=== PATIENT | female | born 1960 | race Native Hawaiian/Other Pacific Islander ===

== ENCOUNTER 2017-08-06 08:11 | Outpatient (CLI) | payer OTHER | END 2017-08-07 05:16 | disposition home or self-care (01) | LOC: MAMMO 08:11 | DX: Z12.31 Encounter for screening mammogram for malignant neoplasm of breast (principal) ==

== ENCOUNTER 2017-12-20 16:59 | Outpatient (CLI) | payer OTHER ==
[2017-12-20 17:44] LABS: PLATELET COUNT 259 K/uL (152-353)
[2017-12-20 18:20] LABS: POTASSIUM 3.1 mmol/L (3.6-5.2)
== END 2017-12-20 20:27 | disposition home or self-care (01) ==
LOC: LABW 16:59
PROVIDERS: Nurse Practitioner
DX: I10 Essential (primary) hypertension (principal); E78.00 Pure hypercholesterolemia, unspecified; N95.1 Menopausal and female climacteric states; E55.9 Vitamin D deficiency, unspecified
CPT/HCPCS: 36415; 80053; 80061; 82306; 82672; 84144; 84403; 85027

== ENCOUNTER 2018-09-12 17:12 | Outpatient (CLI) | payer OTHER | END 2018-09-12 19:50 | disposition home or self-care (01) | LOC: LABW 17:12 | PROVIDERS: Nurse Practitioner | DX: E78.00 Pure hypercholesterolemia, unspecified (principal); E53.8 Deficiency of other specified B group vitamins; E87.6 Hypokalemia | CPT/HCPCS: 36415; 80048; 80061; 82607 ==

== ENCOUNTER 2022-02-03 08:25 | Outpatient (CLI) | payer OTHER | END 2022-02-03 18:49 | disposition home or self-care (01) | LOC: MAMMO 08:25 | PROVIDERS: ATTEND Internal Medicine | DX: Z12.31 Encounter for screening mammogram for malignant neoplasm of breast (principal) ==

== ENCOUNTER 2022-03-12 08:31 | Outpatient (CLI) | payer OTHER | END 2022-03-12 19:23 | disposition home or self-care (01) | LOC: MAMMO 08:31 | PROVIDERS: ATTEND Internal Medicine | DX: N64.59 Other signs and symptoms in breast (principal) ==

== ENCOUNTER 2022-09-15 08:28 | Outpatient (CLI) | payer OTHER | END 2022-09-15 19:35 | disposition home or self-care (01) | LOC: MAMMO 08:28 | PROVIDERS: ATTEND Internal Medicine | DX: N64.59 Other signs and symptoms in breast (principal) | CPT/HCPCS: G0279 ==